=== PATIENT | female | born 1955 | race Caucasian/White ===

== ENCOUNTER 2016-10-05 13:20 | Emergency (ER) | payer BC ==
[~2016-10-05] VITALS: Ht 160 cm; Wt 61.2 kg
[2016-10-05] MEDS ORDERED: LISI-556 PO (13:29)
[2016-10-05] MEDS ORDERED: INSU100V31 IJ (13:29)
[2016-10-05] MEDS ORDERED: [UNRECOGNIZED DRUG - CODE] TD (13:29)
[2016-10-05] MEDS ORDERED: ATOR10TA66 PO (13:29)
[2016-10-05] MEDS ORDERED: ONDANSETRON 4 MG/2 ML (SDV) Z0FRAN IVP ONE (13:30)
[2016-10-05] MEDS ORDERED: LACTATED RINGERS 1,000 ML IV SCH (13:30)
--- NOTE | 2016-10-05 13:31 | ED GI ---
General Chief Complaint: Abdominal/GI Problems Stated Complaint: NAUSEA Nursing Triage Note: c/o n/v/d Sepsis Screen: No Definite Risk Source of Information: Patient Exam Limitations: No Limitations History of Present Illness Time Seen By Provider: 13:28 Initial Comments To ER with nausea, vomiting, watery diarrhea without blood or mucus since 9 a.m. this morning. No fevers or chills. No recent travel history and no eating out. She is a diabetic with an insulin pump but disconnected her insulin pump around noon. She states that her blood sugars have been normal. She denies any abdominal pain. Timing/Duration: 4-6 Hours Severity/Quality: Severe Location: Generalized Abdomen Radiation: No Radiation Activities at Onset: None Associated Symptoms: No Fever/Chills, Nausea/Vomiting Allergies and Home Medications Allergies Coded Allergies: No Known Drug Allergies (Unverified , 03/05/11) Home Medications Atorvastatin Calcium 10 Mg Tablet, 10 MG PO, (Reported) Estradiol 26 Gm Gel.manager infrastructure, 26 GM TD, (Reported) Insulin Regular, Human 100 Unit/1 Ml Vial, 100 UNIT IJ, (Reported) Lisinopril 5 Mg Tablet, 5 MG PO DAILY, (Reported) Review of Systems Constitutional: see HPI EENTM: No Symptoms Reported Respiratory: No Symptoms Reported Cardiovascular: No Symptoms Reported Gastrointestinal: See HPI, Abdominal Pain, Nausea, Vomiting Genitourinary: No Symptoms Reported Musculoskeletal: no symptoms reported Skin: no symptoms reported Psychiatric/Neurological: No Symptoms Reported Endocrine: No Symptoms Reported Hematologic/Lymphatic: No Symptoms Reported Past Caeygmg-Axxseb-Tqyhgp Hx Patient Social History Alcohol Use: Denies Use Recreational Drug Use: No Smoking Status: Never a Smoker Recent Foreign Travel: No Contact w/Someone Who Travel: No Recent Infectious Disease Expo: No Recent Hopitalizations: No Surgeries HX Surgeries: Yes Surgeries: Adenoidectomy, Appendectomy, Gallbladder, Hysterectomy, Tonsillectomy Respiratory Hx Respiratory Disorders: No Cardiovascular Hx Cardiac Disorders: No Neurological Hx Neurological Disorders: No Genitourinary Hx Genitourinary Disorders: No Gastrointestinal Hx Gastrointestinal Disorders: No Musculoskeletal Hx Musculoskeletal Disorders: No Endocrine Hx Endocrine Disorders: Yes Endocrine Disorders: Diabetes, Insulin dep HEENT HX ENT Disorders: No Cancer Hx Cancer: No Psychosocial Hx Psychiatric Problems: No Integumentary HX Skin/Integumentary Disorder: No Blood Transfusions Hx Blood Disorders: No Physical Exam Vital Signs VS - Last 72 Hours, by Label 10/05/16 13:25 Temp 95.2 Pulse 117 Resp 16 B/P (MAP) 164/95 O2 Delivery Room Air Capillary Refill : Less Than 3 Seconds General Appearance: WD/WN, no apparent distress HEENT: PERRL/EOMI, normal ENT inspection Neck: non-tender, full range of motion, supple Respiratory: normal breath sounds, no respiratory distress, no accessory muscle use Cardiovascular: no murmur, tachycardia Gastrointestinal: normal bowel sounds, non tender, soft Extremities: normal range of motion, non-tender Neurologic/Psychiatric: alert, normal mood/affect, oriented x 3 Skin: normal color, warm/dry Progress/Results/Core Measures Results/Orders Lab Results Laboratory Tests Test 10/05/16 13:34 10/05/16 14:56 Range/Units White Blood Count 10.9 4.3-11.0 10^3/uL Red Blood Count 4.37 4.35-5.85 10^6/uL Hemoglobin 13.8 11.5-16.0 G/DL Hematocrit 39 35-52 % Mean Corpuscular Volume 88 80-99 FL Mean Corpuscular Hemoglobin 32 25-34 PG Mean Corpuscular Hemoglobin Concent 36 32-36 G/DL Red Cell Distribution Width 11.4 10.0-14.5 % Platelet Count 244 130-400 10^3/uL Mean Platelet Volume 10.4 7.4-10.4 FL Neutrophils (%) (Auto) 83 H 42-75 % Lymphocytes (%) (Auto) 14 12-44 % Monocytes (%) (Auto) 3 0-12 % Eosinophils (%) (Auto) 0 0-10 % Basophils (%) (Auto) 0 0-10 % Neutrophils # (Auto) 9.1 H 1.8-7.8 X 10^3 Lymphocytes # (Auto) 1.5 1.0-4.0 X 10^3 Monocytes # (Auto) 0.3 0.0-1.0 X 10^3 Eosinophils # (Auto) 0.0 0.0-0.3 10^3/uL Basophils # (Auto) 0.0 0.0-0.1 10^3/uL Sodium Level 133 L 135-145 MMOL/L Potassium Level 4.0 3.6-5.0 MMOL/L Chloride Level 97 L 98-107 MMOL/L Carbon Dioxide Level 23 21-32 MMOL/L Anion Gap 13 5-14 MMOL/L Blood Urea Nitrogen 12 7-18 MG/DL Creatinine 0.99 0.60-1.30 MG/DL Estimat Glomerular Filtration Rate 57 BUN/Creatinine Ratio 12 Glucose Level 306 H 70-105 MG/DL Calcium Level 9.6 8.5-10.1 MG/DL Total Bilirubin 0.5 0.1-1.0 MG/DL Aspartate Amino Transf (AST/SGOT) 26 5-34 U/L Alanine Aminotransferase (ALT/SGPT) 26 0-55 U/L Alkaline Phosphatase 61 40-136 U/L Total Protein 7.2 6.4-8.2 G/DL Albumin 4.2 3.2-4.5 G/DL Lipase 50 8-78 U/L Urine Color YELLOW Urine Clarity CLEAR Urine pH 8 5-9 Urine Specific [place] 1.015 L 1.016-1.022 Urine Protein NEGATIVE NEGATIVE Urine Glucose (UA) 4+ H NEGATIVE Urine Ketones 4+ H NEGATIVE Urine Nitrite NEGATIVE NEGATIVE Urine Bilirubin NEGATIVE NEGATIVE Urine Urobilinogen NORMAL NORMAL MG/DL Urine Leukocyte Esterase NEGATIVE NEGATIVE Urine RBC (Auto) NEGATIVE NEGATIVE Urine RBC NONE /HPF Urine WBC NONE /HPF Urine Squamous Epithelial Cells RARE /HPF Urine Crystals NONE /LPF Urine Bacteria NEGATIVE /HPF Urine Casts NONE /LPF Urine Mucus NEGATIVE /LPF Urine Culture Indicated NO My Orders Orders - CARMEN QUILES APRN Cbc With Automated Diff (10/05/16 13:28) Comprehensive Metabolic Panel (10/05/16 13:28) Ua Culture If Indicated (10/05/16 13:28) Lipase (10/05/16 13:28) Saline Lock/Iv-Start (10/05/16 13:28) Lactated Ringers (Lr 1000 Ml Iv Solution (10/05/16 13:30) Ondansetron Injection (Zofran Injectio (10/05/16 13:30) Ketorolac Injection (Toradol Injection) (10/05/16 14:15) Diphenhydramine Injection (Benadryl Inje (10/05/16 14:15) Prochlorperazine Injection (Compazine In (10/05/16 15:00) Medications Given in ED Current Medications Medications Dose Ordered Sig/Sangeeta Route Start Time Stop Time Status Last Admin Dose Admin Diphenhydramine HCl 25 mg ONCE ONCE IVP 10/05/16 14:15 10/05/16 14:16 DC 10/05/16 14:22 25 MG Ketorolac Tromethamine 30 mg ONCE ONCE IVP 10/05/16 14:15 10/05/16 14:16 DC 10/05/16 14:08 30 MG Ondansetron HCl 8 mg ONCE ONCE IVP 10/05/16 13:30 10/05/16 13:31 DC 10/05/16 13:32 8 MG Prochlorperazine Edisylate 5 mg ONCE ONCE IV 10/05/16 15:00 10/05/16 15:01 DC 10/05/16 15:07 5 MG Vital Signs/I&O Vital Sign - Last 12Hours 10/05/16 13:25 Temp 95.2 Pulse 117 Resp 16 B/P (MAP) 164/95 O2 Delivery Room Air Blood Pressure Mean: 118 Departure Impression Impression: Primary Impression: Nausea and vomiting Additional Impression: Dehydration Disposition: 01 HOME, SELF-CARE Condition: Stable Departure-Patient Inst. Decision time for Depature: 15:21 Referrals: QUIANA ANDRADE MD (PCP/Family) Primary Care Physician Patient Instructions: Nausea and Vomiting, Adult Add. Discharge Instructions: 1. Drink plenty of fluids 2. Nausea medication as needed 3. Follow-up with Dr. ANDRADE this week 4. Return to ER for any worsening All discharge instructions reviewed with patient and/or family. Voiced understanding. Scripts Ondansetron (Zofran Odt) 8 Mg Tab.rapdis 8 MG PO Q6H Y for NAUSEA-1ST LINE, #10 TAB Prov: CARMEN QUILES MACHINE CASTINGS PLASTERER 10/05/16 CARMEN QUILES MACHINE CASTINGS PLASTERER Oct 05, 2016 13:30
[2016-10-05 13:43] LABS: BASOPHILS % (AUTO) 0 % (0-10); EOSINOPHILS % (AUTO) 0 % (0-10); LYMPHOCYTES # (AUTO) 1.5 X 10^3 (1.0-4.0); LYMPHOCYTES % (AUTO) 14 % (12-44); MEAN CORPUSCULAR HEMOGLOBIN 32 PG (25-34); MEAN CORPUSCULAR HGB CONC 36 G/DL (32-36); MEAN CORPUSCULAR VOLUME 88 FL (80-99); MEAN PLATELET VOLUME 10.4 FL (7.4-10.4); MONOCYTES # (AUTO) 0.3 X 10^3 (0.0-1.0); MONOCYTES % (AUTO) 3 % (0-12); NEUTROPHILS # (AUTO) 9.1 X 10^3 (1.8-7.8); NEUTROPHILS % (AUTO) 83 % (42-75); PLATELET COUNT 244 10^3/uL (130-400); RED BLOOD COUNT 4.37 10^6/uL (4.35-5.85); RED CELL DISTRIBUTION WIDTH 11.4 % (10.0-14.5); WHITE BLOOD COUNT 10.9 10^3/uL (4.3-11.0)
[2016-10-05 14:09] LABS: ALBUMIN 4.2 G/DL (3.2-4.5); BILIRUBIN,TOTAL 0.5 MG/DL (0.1-1.0); CALCIUM 9.6 MG/DL (8.5-10.1); CREATININE SERUM 0.99 MG/DL (0.60-1.30); TOTAL PROTEIN 7.2 G/DL (6.4-8.2)
[2016-10-05] MEDS ORDERED: KETOROLAC 30 MG/ML VIAL IVP ONE (14:15)
[2016-10-05] MEDS ORDERED: diphenhydrAMINE 50 MG/ML INJ (BENADRYL) IVP ONE (14:15)
[2016-10-05] MEDS ORDERED: PROCHLORPERAZINE 10 MG/2ML INJ (COMPAZINE) IV ONE (15:00)
[2016-10-05 15:02] LABS: BILIRUBIN,URINE NEGATIVE (NEGATIVE); KETONES,URINE 4+ (NEGATIVE); LEUKOCYTE ESTERASE ,URINE NEGATIVE (NEGATIVE); NITRITE,URINE NEGATIVE (NEGATIVE); PH,URINE 8 (5-9); PROTEIN,URINE NEGATIVE (NEGATIVE); UROBILINOGEN,URINE NORMAL (NORMAL)
[2016-10-05 15:13] LABS: SQUAMOUS EPITHELIAL CELL,UR RARE /HPF
[2016-10-05] MEDS ORDERED: ONDA8TAB9 PO (15:22)
[2016-10-05] MEDS ORDERED: NS IV 1000 ML 1,000 ML IV SCH (15:30)
[2016-10-05 16:08] VITALS: BP 142/78
--- OUTSIDE RECORDS SUMMARY | 2016-11-07 14:29 | XMS REPORT | Continuity of Care Document ---
Demographics Preferred Language Unknown Marital Status Unknown [employer]ology Affiliation Unknown Race Unknown Ethnic Group Unknown Author Author [facility] Address Unknown Phone Unavailable Allergies Active Description Code Type Severity Reaction Onset Reported/Identified Relationship to Patient Clinical Status Yes No Known Drug Allergies [id number] Drug Allergy Unknown N/ A 03/05/2011 Medications Problems Date Dx Coded Attending Type Code Diagnosis Diagnosed By 10/05/2016 CARMEN QUILES APRN Ot E11.9 TYPE 2 DIABETES MELLITUS WITHOUT COMPLIC 10/05/2016 CARMEN QUILES APRN Ot E86.0 DEHYDRATION 10/05/2016 CARMEN QUILES APRN Ot R11.2 NAUSEA WITH VOMITING, UNSPECIFIED 10/05/2016 CARMEN QUILES APRN Ot 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 10/05/2016 CARMEN QUILES APRN Ot Z96.41 PRESENCE OF INSULIN PUMP (EXTERNAL) (INT Procedures Code Description [place] [address] TB TEST INTRADERMAL 09/25/2012 Results Test Result Range Complete blood count (CBC) with automated white blood cell (WBC) differential - 10/05/16 13:34 Blood leukocytes automated count (number/volume) 10.9 10*3/ uL 4.3-11.0 Blood erythrocytes automated count (number/volume) 4.37 10*6 /uL 4.35-5.85 Venous blood hemoglobin measurement (mass/volume) 13.8 g/dL 11.5-16.0 Blood hematocrit (volume fraction) 39 % 35-52 Automated erythrocyte mean corpuscular volume 88 [foz_us] 80-99 Automated erythrocyte mean corpuscular hemoglobin (mass per erythrocyte) 32 pg 25-34 Automated erythrocyte mean corpuscular hemoglobin concentration measurement ( mass/volume) 36 g/dL 32-36 Automated erythrocyte distribution width ratio 11.4 % 10.0-14.5 Automated blood platelet count (count/volume) 244 10*3/uL 130-400 Automated blood platelet mean volume measurement 10.4 [foz_ us] 7.4-10.4 Automated blood neutrophils/100 leukocytes 83 % 42-75 Automated blood lymphocytes/100 leukocytes 14 % 12-44 Blood monocytes/100 leukocytes 3 % 0-12 Automated blood eosinophils/100 leukocytes 0 % 0-10 Automated blood basophils/100 leukocytes 0 % 0-10 Blood neutrophils automated count (number/volume) 9.1 10*3 1.8-7.8 Blood lymphocytes automated count (number/volume) 1.5 10*3 1.0-4.0 Blood monocytes automated count (number/volume) 0.3 10*3 0.0-1.0 Automated eosinophil count 0.0 10*3/uL 0.0-0.3 Automated blood basophil count (count/volume) 0.0 10*3/uL 0.0-0.1 Comprehensive metabolic panel - 10/05/16 13:34 Serum or plasma sodium measurement (moles/volume) 133 mmol/ L 135-145 Serum or plasma potassium measurement (moles/volume) 4.0 mmol/L 3.6-5.0 Serum or plasma chloride measurement (moles/volume) 97 mmol/ L 98-107 Carbon dioxide 23 mmol/L 21-32 Serum or plasma anion gap determination (moles/volume) 13 mmol/L 5-14 Serum or plasma urea nitrogen measurement (mass/volume) 12 mg/dL 7-18 Serum or plasma creatinine measurement (mass/volume) 0.99 mg /dL 0.60-1.30 Serum or plasma urea nitrogen/creatinine mass ratio 12 NRG Serum or plasma creatinine measurement with calculation of estimated glomerular filtration rate 57 NRG Serum or plasma glucose measurement (mass/volume) 306 mg/dL 70-105 Serum or plasma calcium measurement (mass/volume) 9.6 mg/dL 8.5-10.1 Serum or plasma total bilirubin measurement (mass/volume) 0.5 mg/dL 0.1-1.0 Serum or plasma alkaline phosphatase measurement (enzymatic activity/volume) 61 U/L 40-136 Serum or plasma aspartate aminotransferase measurement (enzymatic activity/ volume) 26 U/L 5-34 Serum or plasma alanine aminotransferase measurement (enzymatic activity/volume ) 26 U/L 0-55 Serum or plasma protein measurement (mass/volume) 7.2 g/dL 6.4-8.2 Serum or plasma albumin measurement (mass/volume) 4.2 g/dL 3.2-4.5 Lipase - 10/05/16 13:34 Lipase 50 U/L 8-78 Complete urinalysis with reflex to culture - 10/05/16 14:56 Urine color determination YELLOW NRG Urine clarity determination CLEAR NRG Urine pH measurement by test strip 8 5- 9 Specific gravity of urine by test strip 1.015 1.016-1.022 Urine protein assay by test strip, semi-quantitative NEGATIVE NEGATIVE Urine glucose detection by automated test strip 4+ NEGATIVE Erythrocytes detection in urine sediment by light microscopy NEGATIVE NEGATIVE Urine ketones detection by automated test strip 4+ NEGATIVE Urine nitrite detection by test strip NEGATIVE NEGATIVE Urine total bilirubin detection by test strip NEGATIVE NEGATIVE Urine urobilinogen measurement by automated test strip (mass/volume) NORMAL NORMAL Urine leukocyte esterase detection by dipstick NEGATIVE NEGATIVE Automated urine sediment erythrocyte count by microscopy (number/high power field) NONE NRG Automated urine sediment leukocyte count by microscopy (number/high power field ) NONE NRG Bacteria detection in urine sediment by light microscopy NEGATIVE NRG Squamous epithelial cells detection in urine sediment by light microscopy RARE NRG Crystals detection in urine sediment by light microscopy NONE NRG Casts detection in urine sediment by light microscopy NONE NRG Mucus detection in urine sediment by light microscopy NEGATIVE NRG Complete urinalysis with reflex to culture NO NRG Capillary blood glucose measurement by glucometer (mass/volume) - 10/05/16 16: 04 Capillary blood glucose measurement by glucometer (mass/volume) 276 mg/dL 70-110 Encounters ACCT No. Visit Date/Time Discharge Status Pt. Type Provider Facility Loc./Unit Complaint [id number] 10/29/2011 09:16:00 10/29/2011 23: 59:59 CLS Outpatient
== END 2016-10-05 16:08 | disposition home or self-care (01) ==
LOC: EDUNIT# 13:20 → ER 13:22
DX: E86.0 Dehydration (principal); R11.2 Nausea with vomiting, unspecified; E11.9 Type 2 diabetes mellitus without complications; Z79.899 Other long term (current) drug therapy; Z96.41 Presence of insulin pump (external) (internal)
CPT/HCPCS: 36415; 80053; 81000; 82962; 83690; 85025; 96361; 96374; 96375

== ENCOUNTER 2023-05-07 19:43 | Emergency (ER) | payer OTHER, MEDICARE ==
[~2023-05-07] VITALS: Ht 160 cm; Wt 65.0 kg
[~2023-05-07 19:43] MED LIST: ATOR10TA66 PO; INSU100V31 INJ; LISI5TAB20 PO; ONDA8TAB9 PO; [UNRECOGNIZED DRUG - CODE] TD
[2023-05-07] MEDS ORDERED: fentaNYL INJECTION 100 MCG/2 ML VIAL IVP ONE ×2 (20:15→21:15)
[2023-05-07 20:26] LABS: HEMATOCRIT 36 % (35-52); HEMOGLOBIN 11.8 g/dL (11.5-16.0); MEAN CORPUSCULAR HEMOGLOBIN 30 pg (25-34); MEAN CORPUSCULAR HGB CONC 33 g/dL (32-36); MEAN CORPUSCULAR VOLUME 93 fL (80-99); MEAN PLATELET VOLUME 10.4 fL (9.0-12.2); PLATELET COUNT 251 10^3/uL (130-400); WHITE BLOOD COUNT 10.4 10^3/uL (4.3-11.0)
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
[2023-05-07 20:30] LABS: ALBUMIN 3.9 GM/DL (3.2-4.5); CHLORIDE 103 MMOL/L (98-107); POTASSIUM 4.1 MMOL/L (3.6-5.0); SODIUM 135 MMOL/L (135-145)
[2023-05-07 20:31] LABS: CALCIUM 8.8 MG/DL (8.5-10.1)
[2023-05-07 20:33] LABS: GLUCOSE 331 MG/DL (70-105); TOTAL PROTEIN 6.7 GM/DL (6.4-8.2)
[2023-05-07 20:34] LABS: BILIRUBIN,TOTAL 0.3 MG/DL (0.1-1.0); CARBON DIOXIDE 20 MMOL/L (21-32)
[2023-05-07 20:36] LABS: ALKALINE PHOSPHATASE 74 U/L (40-136); CREATININE SERUM 1.19 MG/DL (0.60-1.30); GFR ESTIMATED 50
[2023-05-07 20:37] LABS: BUN/CREATININE RATIO 13
[2023-05-07 20:38] LABS: BILIRUBIN,DIRECT 0.1 MG/DL (0.0-0.3); BILIRUBIN,INDIRECT 0.2 MG/DL
[2023-05-07 20:39] LABS: ALANINE AMINOTRANSFERASE 53 U/L (0-55)
[2023-05-07 21:38] LABS: PROTHROMBIN TIME PATIENT 13.5 SEC (12.2-14.7)
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
[2023-05-07] MEDS ORDERED: ONDANSETRON INJECTION 4 MG/2 ML (SDV) ONE (22:06)
[2023-05-07] MEDS ORDERED: CATHETER FLUSH 10 ML SYR IV PRN (22:15)
[2023-05-07] MEDS ORDERED: IOHEXOL 350 MG/ML 100 ML (OMNIPAQUE 350) VIAL IV ONE (22:15)
[2023-05-07] MEDS ORDERED: NS 100 ML (IVPB) BAG IV ONE (22:15)
[2023-05-07] MEDS ORDERED: HOLD METFORMIN - RECEIVED CONTRAST 20 ML VIAL IV SCH (22:15)
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
--- NOTE | 2023-05-07 23:01 | Diagnostic Imaging Report ---
EXAMINATION: CT chest, abdomen, and pelvis with intravenous contrast. TECHNIQUE: Multiple contiguous axial images were obtained through the chest, abdomen and pelvis after the uneventful administration of intravenous contrast. All CT scans use one or more of the following dose optimizing techniques: automated exposure control, MA and/or KvP adjustment based on patient size and exam type or iterative reconstruction. HISTORY: Chest and abdominal pain. COMPARISON: None available. FINDINGS: Thyroid: The visualized thyroid gland is normal. Mediastinum: Heart size is normal without significant pericardial effusion. The aorta is normal in caliber. No suspicious lymphadenopathy. Lungs and airways: The lungs are clear without consolidation, pleural effusion, or pneumothorax. Atelectasis is present within the lung bases. The airways are normal. Solid organs: The liver is normal without focal lesion. The gallbladder is surgically absent. There is no biliary ductal dilation. Pancreas is normal. Spleen is normal. Adrenal glands are normal. The kidneys are normal without hydronephrosis. Bowel: The stomach and small bowel are normal without obstruction. The colon is normal. There are no secondary signs of acute appendicitis. Peritoneum: There is no intraperitoneal free fluid or free air. No suspicious lymphadenopathy. Vasculature: Normal without aneurysm. Musculoskeletal: Degenerative changes of the spine without suspicious osseous lesion or compression fracture. Age indeterminate fractures of the left L3 and L4 transverse processes. There may be a nondisplaced fracture of the posterior right 12th rib. Prominent masslike enlargement within the left breast measuring up to 6.3 cm. No other acute fracture is seen. Pelvis: The uterus is surgically absent. No adnexal mass. The urinary bladder is normal. IMPRESSION: 1. Age indeterminate fractures of the left L3 and L4 transverse processes. 2. Possible nondisplaced posterior right 12th rib fracture. 3. Masslike enlargement within the left breast which could be seen with hematoma from injury but underlying breast mass or neoplasm would remain within the differential. Recommend correlation with mammography. Dictated by: Dictated on workstation # [id number]
[2023-05-07] MEDS ORDERED: TRM50T PO ×2 (23:12→23:13)
[2023-05-08 00:21] VITALS: BP 186/87
== END 2023-05-08 00:21 | disposition short-term general hospital (02) ==
LOC: EDUNIT# 19:43 → ER 19:44
DX: S20.02XA Contusion of left breast, initial encounter (principal); M54.2 Cervicalgia; V89.2XXA Person injured in unspecified motor-vehicle accident, traffic, initial encounter; Y92.410 Unspecified street and highway as the place of occurrence of the external cause
CPT/HCPCS: 36415; 70450; 71045; 71260; 72125; 74177; 80048; 80076; 84484; 85027; 85610; 85730; 86850; 86900; 86901; 93005; 93041; 96374; 96375; 96376

== ENCOUNTER 2023-05-11 12:27 | Inpatient (IN) | payer OTHER, MEDICARE ==
[~2023-05-11] VITALS: Ht 160 cm; Wt 67.1 kg
[~2023-05-11 12:27] MED LIST changes: +TRM50T PO
[2023-05-11] MEDS ORDERED: morphine INJ 10 MG/ML 1ML (SYR OR VIAL) IVP STA ×2 (12:42→13:46)
[2023-05-11] MEDS ORDERED: NS IV 500 ML 500 ML IV STA (12:42)
[2023-05-11] MEDS ORDERED: ONDANSETRON INJECTION 4 MG/2 ML (SDV) IVP ONE (12:45)
[2023-05-11 12:50] LABS: BASOPHILS % (AUTO) 0 % (0-10); EOSINOPHILS % (AUTO) 0 % (0-10); HEMATOCRIT 35 % (35-52); HEMOGLOBIN 11.2 g/dL (11.5-16.0); LYMPHOCYTES # (AUTO) 0.7 10^3/uL (1.0-4.0); LYMPHOCYTES % (AUTO) 6 % (12-44); MEAN CORPUSCULAR HEMOGLOBIN 31 pg (25-34); MEAN CORPUSCULAR HGB CONC 32 g/dL (32-36); MEAN CORPUSCULAR VOLUME 96 fL (80-99); MEAN PLATELET VOLUME 10.2 fL (9.0-12.2); MONOCYTES # (AUTO) 0.4 10^3/uL (0.0-1.0); MONOCYTES % (AUTO) 3 % (0-12); NEUTROPHILS # (AUTO) 12.1 10^3/uL (1.8-7.8); NEUTROPHILS % (AUTO) 90 % (42-75); PLATELET COUNT 287 10^3/uL (130-400); WHITE BLOOD COUNT 13.5 10^3/uL (4.3-11.0)
[2023-05-11 13:04] LABS: INR 1.1 (0.8-1.4); PROTHROMBIN TIME PATIENT 15.1 SEC (12.2-14.7)
[2023-05-11 13:07] LABS: CALCIUM 9.7 MG/DL (8.5-10.1)
[2023-05-11 13:08] LABS: TOTAL PROTEIN 7.5 GM/DL (6.4-8.2)
[2023-05-11 13:09] LABS: BAND NEUTROPHILS 0 %; BASOPHILS % (MANUAL) 0 %; BURR CELLS SLIGHT; EOSINOPHILS % (MANUAL) 0 %; LYMPHOCYTES % (MANUAL) 4 %; MONOCYTES % (MANUAL) 3 %; MYELOCYTES % 2 %; NEUTROPHILS % (MANUAL) 91 %
[2023-05-11 13:10] LABS: BILIRUBIN,TOTAL 0.5 MG/DL (0.1-1.0)
[2023-05-11 13:12] LABS: CREATININE SERUM 1.53 MG/DL (0.60-1.30)
[2023-05-11 13:15] LABS: MAGNESIUM 1.9 MG/DL (1.6-2.4)
[2023-05-11 13:23] LABS: POTASSIUM 5.6 MMOL/L (3.6-5.0)
[2023-05-11] MEDS ORDERED: dilTIAZem IV FOR DRIP 125 MG in NS (IVPB) 100 ML 100 ML IV STA (13:30)
[2023-05-11] MEDS ORDERED: NS IV 1000 ML 1,000 ML IV STA (13:30)
[2023-05-11] MEDS ORDERED: dilTIAZem INJ 25 MG/5 ML VIAL IVP ONE (13:30)
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
[2023-05-11] MEDS ORDERED: ASPIRIN 81 MG CHEWABLE TABLET PO ONE (13:45)
[2023-05-11] MEDS ORDERED: ENOXAPARIN 80 MG/0.8 ML SYRINGE SC ONE (13:45)
[2023-05-11] MEDS ORDERED: morphine INJ 10 MG/ML 1ML (SYR OR VIAL) ONE (13:47)
[2023-05-11] MEDS ORDERED: NS (IVPB) 100 ML 100 ML ONE (14:05)
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
[2023-05-11] MEDS ORDERED: dilTIAZem DRIP PRE-MIX 125 ML IV STA (14:17)
[2023-05-11 15:00] LABS: ABG BASE EXCESS -21.9 MMOL/L (-2.5-2.5); ABG OXYGEN SATURATION 99 % (94-100); ABG PO2 144 MMHG (79-93)
[2023-05-11 15:05] LABS: ABG PCO2 12 MMHG (35-45); ABG PH 7.16 (7.37-7.43); ABG TCO2 4.7 MMOL/L (21.0-31.0)
[2023-05-11 15:06] LABS: VENTILATOR NO
[2023-05-11 15:13] VITALS: BP 131/65
[2023-05-11] MEDS ORDERED: MELATONIN 3 MG TABLET PO PRN (15:15)
[2023-05-11] MEDS ORDERED: NS IV 500 ML 500 ML IV PRN (15:15)
[2023-05-11] MEDS ORDERED: diphenhydrAMINE INJ 50 MG/ML VIAL IVP PRN (15:15)
[2023-05-11] MEDS ORDERED: HYDROmorphone INJECTION 2 MG/ML VIAL IV PRN (15:15)
[2023-05-11] MEDS ORDERED: oxyCODONE IMMEDIATE RELEASE 5 MG TABLET PO PRN (15:15)
[2023-05-11] MEDS ORDERED: ONDANSETRON 4 MG ORAL DISSOLVE TABLET PO PRN (15:15)
[2023-05-11] MEDS ORDERED: ONDANSETRON INJECTION 4 MG/2 ML (SDV) IV PRN (15:15)
[2023-05-11] MEDS ORDERED: LACTULOSE SYRUP 10GM/15ML 30ML UDC PO PRN (15:15)
[2023-05-11] MEDS ORDERED: POTASSIUM CL 10MEQ/50ML IVPB 50 ML IV SCH (15:15)
[2023-05-11] MEDS ORDERED: diphenhydrAMINE 25 MG TABLET PO PRN (15:15)
[2023-05-11] MEDS ORDERED: MILK OF MAGNESIA 400 MG/5 ML 30 ML UDC PO PRN (15:15)
[2023-05-11] MEDS ORDERED: ENOXAPARIN 100 MG/1 ML SYRINGE SC SCH (15:15)
[2023-05-11] MEDS ORDERED: BISACODYL 10 MG SUPPOSITORY PR PRN (15:15)
[2023-05-11] MEDS ORDERED: NS IV 1000 ML 1,000 ML IV SCH (15:15)
[2023-05-11] MEDS ORDERED: CALCIUM CARBONATE 500 MG CHEW TABLET PO PRN (15:15)
[2023-05-11] MEDS ORDERED: PATIENT MAY USE OWN MEDS, ALL PO SCH (15:15)
[2023-05-11] MEDS ORDERED: ALPRAZolam 0.5 MG TABLET PO PRN (15:15)
[2023-05-11] MEDS ORDERED: ANTACID SUSPENSION 30 ML UDC PO PRN (15:15)
[2023-05-11] MEDS ORDERED: dilTIAZem IV FOR DRIP 125 MG in NS (IVPB) 100 ML 100 ML IV SCH (15:15)
[2023-05-11] MEDS ORDERED: HYDROcodone/ACETAMINOPHEN 5 MG/325 MG TABLET PO PRN (15:15)
[2023-05-11] MEDS ORDERED: ENOXAPARIN 80 MG/0.8 ML SYRINGE SC SCH (15:30)
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
[2023-05-11] MEDS: dilTIAZem DRIP 125 MG/125 ML DRIP IV SCH (15:45)
[2023-05-11] MEDS: 1/2 NS IV SOLUTION 1000 ML 1,000 ML IV SCH ×4 (15:46→21:51)
[2023-05-11 16:05] LABS: CHLORIDE 105 MMOL/L (98-107); POTASSIUM 5.6 MMOL/L (3.6-5.0); SODIUM 132 MMOL/L (135-145)
[2023-05-11 16:06] LABS: CALCIUM 8.6 MG/DL (8.5-10.1)
[2023-05-11] MEDS: meTOprolol INJECTION 5 MG/5 ML VIAL IV SCH ×3 (16:07→21:53)
[2023-05-11 16:10] LABS: CREATININE SERUM 1.42 MG/DL (0.60-1.30); GFR ESTIMATED 41
[2023-05-11 16:11] LABS: BUN/CREATININE RATIO 15
[2023-05-11 16:12] LABS: CARBON DIOXIDE < 5 MMOL/L (21-32); GLUCOSE 518 MG/DL (70-105)
[2023-05-11 17:32] LABS: POTASSIUM 4.6 MMOL/L (3.6-5.0)
[2023-05-11 17:33] LABS: CALCIUM 8.3 MG/DL (8.5-10.1)
[2023-05-11 17:38] LABS: CREATININE SERUM 1.4 MG/DL (0.60-1.30)
[2023-05-11] MEDS: POTASSIUM CL 10MEQ/50ML IVPB 50 ML IV SCH ×4 (17:55→23:51)
[2023-05-11] MEDS: DOCUSATE SODIUM 100 MG CAPSULE PO SCH (20:09)
[2023-05-11] MEDS: SENNOSIDES 8.6 MG TABLET PO SCH (20:09)
[2023-05-11] MEDS ORDERED: RT-Ipratropium/Albuterol NEB 3 ML VIAL INH SCH (21:00)
[2023-05-11] MEDS ORDERED: RT-Ipratropium/Albuterol NEB 3 ML VIAL INH PRN (22:45)
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
[2023-05-11] MEDS: D5 1/2 NS 1,000 ML IV 1,000 ML IV SCH (22:54)
[2023-05-11 23:21] LABS: POTASSIUM 4.8 MMOL/L (3.6-5.0)
[2023-05-11 23:23] LABS: CALCIUM 8.1 MG/DL (8.5-10.1)
[2023-05-11 23:27] LABS: CREATININE SERUM 1.21 MG/DL (0.60-1.30)
[2023-05-12] MEDS: meTOprolol INJECTION 5 MG/5 ML VIAL IV SCH ×9 (00:46→20:01)
[2023-05-12 01:25] LABS: CLARITY,URINE CLEAR; COLOR,URINE YELLOW; GLUCOSE, URINE (UA) 2+ (NEGATIVE); KETONES,URINE 2+ (NEGATIVE); NITRITE,URINE NEGATIVE (NEGATIVE); PH,URINE 6.5 (5-9); PROTEIN,URINE TRACE (NEGATIVE)
[2023-05-12 01:26] LABS: BILIRUBIN,URINE 1+ (NEGATIVE); LEUKOCYTE ESTERASE ,URINE NEGATIVE (NEGATIVE)
[2023-05-12 01:31] LABS: BACTERIA,URINE TRACE /HPF; RBC,URINE RARE /HPF; SQUAMOUS EPITHELIAL CELL,UR 0-2 /HPF; WBC,URINE RARE /HPF
[2023-05-12] MEDS: POTASSIUM CL 10MEQ/50ML IVPB 50 ML IV SCH ×8 (01:51→23:50)
[2023-05-12] MEDS: D5 1/2 NS 1,000 ML IV 1,000 ML IV SCH ×6 (01:51→20:02)
[2023-05-12] MEDS: 1/2 NS IV SOLUTION 1000 ML 1,000 ML IV SCH ×6 (03:55→23:18)
[2023-05-12 05:11] LABS: ABG OXYGEN SATURATION 98 % (94-100); ABG PCO2 25 MMHG (35-45); ABG PH 7.35 (7.37-7.43); ABG PO2 80 MMHG (79-93); ABG TCO2 14.6 MMOL/L (21.0-31.0)
[2023-05-12 05:12] LABS: INSPIRED O2 RA; VENTILATOR NO
[2023-05-12] MEDS: MAGNESIUM 1 GM/100 ML IVPB 100 ML IV SCH (05:18)
[2023-05-12] MEDS: POTASSIUM CHLORIDE 20 MEQ TABLET PO SCH (05:18)
[2023-05-12 05:20] LABS: BASOPHILS % (AUTO) 0 % (0-10); EOSINOPHILS # (AUTO) 0.1 10^3/uL (0.0-0.3); EOSINOPHILS % (AUTO) 1 % (0-10); HEMATOCRIT 28 % (35-52); HEMOGLOBIN 9.4 g/dL (11.5-16.0); LYMPHOCYTES # (AUTO) 2.6 10^3/uL (1.0-4.0); LYMPHOCYTES % (AUTO) 22 % (12-44); MEAN CORPUSCULAR HEMOGLOBIN 31 pg (25-34); MEAN CORPUSCULAR HGB CONC 34 g/dL (32-36); MEAN CORPUSCULAR VOLUME 92 fL (80-99); MEAN PLATELET VOLUME 10.4 fL (9.0-12.2); MONOCYTES # (AUTO) 0.6 10^3/uL (0.0-1.0); MONOCYTES % (AUTO) 5 % (0-12); NEUTROPHILS # (AUTO) 8.5 10^3/uL (1.8-7.8); NEUTROPHILS % (AUTO) 72 % (42-75); PLATELET COUNT 225 10^3/uL (130-400); WHITE BLOOD COUNT 11.9 10^3/uL (4.3-11.0)
[2023-05-12 05:22] LABS: POTASSIUM 4.5 MMOL/L (3.6-5.0)
[2023-05-12 05:25] LABS: TOTAL PROTEIN 5.4 GM/DL (6.4-8.2)
[2023-05-12 05:27] LABS: BILIRUBIN,TOTAL 0.3 MG/DL (0.1-1.0)
[2023-05-12 05:28] LABS: PHOSPHORUS 1.2 MG/DL (2.3-4.7)
[2023-05-12 05:29] LABS: CREATININE SERUM 1.04 MG/DL (0.60-1.30)
[2023-05-12 05:32] LABS: MAGNESIUM 1.6 MG/DL (1.6-2.4)
[2023-05-12] MEDS ORDERED: SODIUM PHOSPHATE INJ 30 MM in NS (IVPB) 250 ML 250 ML INJ ONE (08:00)
[2023-05-12] MEDS ORDERED: POTASSIUM PHOSPHATE INJ 30 MM in NS (IVPB) 250 ML 250 ML IV ONE (08:00)
--- NOTE | 2023-05-12 08:24 | Diagnostic Imaging Report ---
EXAMINATION: Chest 1 view HISTORY: Rib fracture COMPARISON: 05/07/2020. FINDINGS: The lungs are clear without edema or pneumonia. No pleural effusion or pneumothorax. Heart size is normal. IMPRESSION: 1. Clear lungs. Dictated by: Dictated on workstation # [id number]
[2023-05-12] MEDS: ACETAMINOPHEN 325 MG TABLET PO PRN ×3 (08:33→21:38)
[2023-05-12] MEDS ORDERED: ACET325T38 PO (08:44)
[2023-05-12] MEDS: SENNOSIDES 8.6 MG TABLET PO SCH ×2 (09:14→21:00)
[2023-05-12] MEDS: DOCUSATE SODIUM 100 MG CAPSULE PO SCH ×2 (09:14→21:00)
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
[2023-05-12] MEDS: ASPIRIN enteric coated 81MG TABLET PO SCH (10:29)
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
[2023-05-12] MEDS ORDERED: ENOXAPARIN 80 MG/0.8 ML SYRINGE SC SCH (13:00)
[2023-05-12 13:56] LABS: CALCIUM 7.9 MG/DL (8.5-10.1); POTASSIUM 4.4 MMOL/L (3.6-5.0)
[2023-05-12 13:59] LABS: CREATININE SERUM 0.85 MG/DL (0.60-1.30)
[2023-05-12] MEDS ORDERED: APIXABAN 5 MG TABLET PO SCH (14:15)
[2023-05-12] MEDS ORDERED: APIXABAN 5 MG TABLET PO NR (14:30)
[2023-05-12] MEDS: dilTIAZem DRIP 125 MG/125 ML DRIP IV SCH (15:19)
[2023-05-12] MEDS ORDERED: dilTIAZem ER 180 MG CAPSULE PO NR (15:30)
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
[2023-05-12] MEDS: APIXABAN 5 MG TABLET PO SCH (20:01)
[2023-05-13] MEDS: meTOprolol INJECTION 5 MG/5 ML VIAL IV SCH ×4 (00:10→08:39)
[2023-05-13] MEDS: D5 1/2 NS 1,000 ML IV 1,000 ML IV SCH ×3 (00:10→08:55)
[2023-05-13] MEDS: POTASSIUM CL 10MEQ/50ML IVPB 50 ML IV SCH ×4 (02:08→06:34)
[2023-05-13] MEDS: ACETAMINOPHEN 325 MG TABLET PO PRN ×2 (02:20→17:49)
[2023-05-13] MEDS: 1/2 NS IV SOLUTION 1000 ML 1,000 ML IV SCH ×2 (03:15→07:15)
[2023-05-13 05:00] LABS: BASOPHILS % (AUTO) 0 % (0-10); EOSINOPHILS # (AUTO) 0.1 10^3/uL (0.0-0.3); EOSINOPHILS % (AUTO) 1 % (0-10); HEMATOCRIT 27 % (35-52); HEMOGLOBIN 9.6 g/dL (11.5-16.0); LYMPHOCYTES # (AUTO) 1.5 10^3/uL (1.0-4.0); LYMPHOCYTES % (AUTO) 18 % (12-44); MEAN CORPUSCULAR HEMOGLOBIN 31 pg (25-34); MEAN CORPUSCULAR HGB CONC 35 g/dL (32-36); MEAN CORPUSCULAR VOLUME 89 fL (80-99); MEAN PLATELET VOLUME 10.1 fL (9.0-12.2); MONOCYTES # (AUTO) 0.5 10^3/uL (0.0-1.0); MONOCYTES % (AUTO) 6 % (0-12); NEUTROPHILS # (AUTO) 6.3 10^3/uL (1.8-7.8); NEUTROPHILS % (AUTO) 74 % (42-75); PLATELET COUNT 222 10^3/uL (130-400); WHITE BLOOD COUNT 8.5 10^3/uL (4.3-11.0)
[2023-05-13 05:12] LABS: POTASSIUM 4.4 MMOL/L (3.6-5.0)
[2023-05-13 05:13] LABS: CALCIUM 7.9 MG/DL (8.5-10.1)
[2023-05-13 05:14] LABS: TOTAL PROTEIN 5.4 GM/DL (6.4-8.2)
[2023-05-13 05:16] LABS: BILIRUBIN,TOTAL 0.4 MG/DL (0.1-1.0)
[2023-05-13 05:18] LABS: CREATININE SERUM 0.77 MG/DL (0.60-1.30); PHOSPHORUS 1.2 MG/DL (2.3-4.7)
[2023-05-13 05:21] LABS: MAGNESIUM 1.6 MG/DL (1.6-2.4)
[2023-05-13] MEDS ORDERED: MAGNESIUM 1 GM/100 ML IVPB 400 ML IV ONE (05:51)
[2023-05-13] MEDS: MAGNESIUM 1 GM/100 ML IVPB 100 ML IV SCH ×4 (06:10→08:39)
[2023-05-13] MEDS: POTASSIUM CHLORIDE 20 MEQ TABLET PO SCH (06:11)
[2023-05-13] MEDS ORDERED: SODIUM PHOSPHATE INJ 30 MM in NS (IVPB) 250 ML 250 ML INJ ONE (07:30)
[2023-05-13] MEDS: DOCUSATE SODIUM 100 MG CAPSULE PO SCH ×3 (08:37→20:44)
[2023-05-13] MEDS: ASPIRIN enteric coated 81MG TABLET PO SCH (08:37)
[2023-05-13] MEDS: SENNOSIDES 8.6 MG TABLET PO SCH ×3 (08:37→20:45)
[2023-05-13] MEDS: APIXABAN 5 MG TABLET PO SCH ×2 (08:38→20:40)
[2023-05-13] MEDS ORDERED: dilTIAZem ER 180 MG CAPSULE PO SCH (09:00)
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
[2023-05-13] MEDS ORDERED: D5 1/2 NS 1,000 ML IV 1,000 ML IV SCH (09:30)
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
[2023-05-13] MEDS: SODIUM BICARBONATE 650 MG TABLET PO SCH ×3 (11:00→20:42)
[2023-05-13] MEDS ORDERED: inSUlin ASPART 1 UNIT/0.01 ML (PER UNIT) SC SCH (11:00)
[2023-05-13] MEDS ORDERED: MTP100TCR PO (12:43)
[2023-05-13] MEDS ORDERED: ASPI-1238 PO (12:43)
[2023-05-13] MEDS ORDERED: NF-SODBICA PO (12:43)
[2023-05-13] MEDS ORDERED: APIX5TAB PO ×2 (12:43→15:25)
[2023-05-13] MEDS ORDERED: ATOR10TA PO (12:44)
[2023-05-13] MEDS ORDERED: inSUlin (REGULAR) HUMAN 1 UNIT/0.01 ML (CHARGE PER UNIT) SC SCH (12:45)
[2023-05-13] MEDS ORDERED: ACETAMINOPHEN 325 MG TABLET PO PRN (12:45)
[2023-05-13 15:10] VITALS: BP 160/81
[2023-05-13] MEDS ORDERED: RIVA20TA PO (15:12)
[2023-05-13] MEDS ORDERED: INSULIN ASPART SQ SCH (16:30)
[2023-05-13 20:46] VITALS: BP 173/83
[2023-05-13 23:44] VITALS: BP 154/71
[2023-05-14] MEDS: ACETAMINOPHEN 325 MG TABLET PO PRN (00:24)
[2023-05-14 04:00] VITALS: BP 145/70
[2023-05-14 05:21] LABS: BASOPHILS % (AUTO) 1 % (0-10); EOSINOPHILS # (AUTO) 0.2 10^3/uL (0.0-0.3); EOSINOPHILS % (AUTO) 2 % (0-10); HEMATOCRIT 28 % (35-52); HEMOGLOBIN 9.7 g/dL (11.5-16.0); LYMPHOCYTES # (AUTO) 1.9 10^3/uL (1.0-4.0); LYMPHOCYTES % (AUTO) 27 % (12-44); MEAN CORPUSCULAR HEMOGLOBIN 31 pg (25-34); MEAN CORPUSCULAR HGB CONC 35 g/dL (32-36); MEAN CORPUSCULAR VOLUME 88 fL (80-99); MONOCYTES # (AUTO) 0.5 10^3/uL (0.0-1.0); MONOCYTES % (AUTO) 6 % (0-12); NEUTROPHILS # (AUTO) 4.6 10^3/uL (1.8-7.8); NEUTROPHILS % (AUTO) 64 % (42-75); PLATELET COUNT 237 10^3/uL (130-400); WHITE BLOOD COUNT 7.2 10^3/uL (4.3-11.0)
[2023-05-14 05:50] LABS: ALBUMIN 3.1 GM/DL (3.2-4.5); BILIRUBIN,TOTAL 0.6 MG/DL (0.1-1.0); CALCIUM 8.1 MG/DL (8.5-10.1); CREATININE SERUM 0.71 MG/DL (0.60-1.30); MAGNESIUM 1.9 MG/DL (1.6-2.4); POTASSIUM 3.8 MMOL/L (3.6-5.0); TOTAL PROTEIN 5.6 GM/DL (6.4-8.2)
[2023-05-14] MEDS: POTASSIUM CHLORIDE 20 MEQ TABLET PO SCH (06:07)
[2023-05-14] MEDS: MAGNESIUM 1 GM/100 ML IVPB 100 ML IV SCH (06:07)
[2023-05-14] MEDS: POTASSIUM CL 10MEQ/50ML IVPB 50 ML IV SCH (06:07)
[2023-05-14 07:20] VITALS: BP 153/84
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
[2023-05-14] MEDS: ASPIRIN enteric coated 81MG TABLET PO SCH (08:24)
[2023-05-14] MEDS: SODIUM BICARBONATE 650 MG TABLET PO SCH (08:24)
[2023-05-14] MEDS: DOCUSATE SODIUM 100 MG CAPSULE PO SCH (08:26)
[2023-05-14] MEDS: SENNOSIDES 8.6 MG TABLET PO SCH (08:26)
[2023-05-14] MEDS: APIXABAN 5 MG TABLET PO SCH (08:30)
[2023-05-14 09:01] VITALS: BP 153/84
== END 2023-05-14 08:50 | disposition home or self-care (01) | DRG 280 ==
LOC: EDUNIT# 12:27 → ER 12:29 → ICU 14:50 → 4TH 05-13 15:09
PROVIDERS: ADMIT Internal Medicine; ATTEND Internal Medicine
DX: I48.0 Paroxysmal atrial fibrillation (principal); E10.10 Type 1 diabetes mellitus with ketoacidosis without coma; I21.A1 Myocardial infarction type 2; N17.9 Acute kidney failure, unspecified; S22.41XD Multiple fractures of ribs, right side, subsequent encounter for fracture with routine healing; S22.21XD Fracture of manubrium, subsequent encounter for fracture with routine healing; S22.039D Unspecified fracture of third thoracic vertebra, subsequent encounter for fracture with routine healing; S20.211D Contusion of right front wall of thorax, subsequent encounter; I27.20 Pulmonary hypertension, unspecified; E83.39 Other disorders of phosphorus metabolism; I10 Essential (primary) hypertension; E78.00 Pure hypercholesterolemia, unspecified; Z79.4 Long term (current) use of insulin; Z79.899 Other long term (current) drug therapy; V49.9XXD Car occupant (driver) (passenger) injured in unspecified traffic accident, subsequent encounter
CPT/HCPCS: 36415; 36600; 71045; 71250; 80048; 80053; 80061; 81000; 82010; 82805; 82947; 83036; 83735; 83880; 84100; 84484; 85007; 85025; 85027; 85610; 85730; 87081; 93005; 93041; 93306; 96361; 96365; 96372; 96375; 96376